=== PATIENT | male | born 1995 | race Hispanic/Latino ===

== ENCOUNTER 2021-05-23 14:39 | Emergency (ER) | payer OTHER ==
[~2021-05-23] VITALS: Ht 160 cm; Wt 70.0 kg
[2021-05-23] MEDS ORDERED: TORADOL PO (17:07)
[2021-05-23 17:20] VITALS: BP 118/78
== END 2021-05-23 17:20 | disposition home or self-care (01) | DRG 950 ==
LOC: ED 14:39
DX: S60.211D Contusion of right wrist, subsequent encounter (principal); W01.0XXD Fall on same level from slipping, tripping and stumbling without subsequent striking against object, subsequent encounter; Y92.89 Other specified places as the place of occurrence of the external cause; Y99.0 Civilian activity done for income or pay

== ENCOUNTER 2021-05-29 10:59 | Emergency (ER) | payer OTHER ==
[~2021-05-29] VITALS: Ht 167.6 cm; Wt 70.0 kg
[~2021-05-29 10:59] MED LIST: TORADOL PO
[2021-05-29 11:15] VITALS: BP 123/85
[2021-05-29] MEDS ORDERED: MOTRIN400 MG/TAB PO (13:16)
== END 2021-05-29 13:50 | disposition home or self-care (01) | DRG 556 ==
LOC: ED 10:59
DX: M79.641 Pain in right hand (principal); W19.XXXA Unspecified fall, initial encounter; Y92.89 Other specified places as the place of occurrence of the external cause; Y99.0 Civilian activity done for income or pay

== ENCOUNTER 2021-10-19 15:42 | Emergency (ER) | payer SELFPAY ==
[~2021-10-19] VITALS: Ht 167.6 cm; Wt 68.0 kg
[~2021-10-19 15:42] MED LIST changes: +MOTRIN400 MG/TAB PO
[2021-10-19 16:21] VITALS: BP 123/93
[2021-10-19 16:30] VITALS: BP 127/90
[2021-10-19 17:00] VITALS: BP 110/82
[2021-10-19 17:30] VITALS: BP 125/90
[2021-10-19 18:00] VITALS: BP 135/96
[2021-10-19] MEDS ORDERED: TAM75CAP PO (18:00)
== END 2021-10-19 18:20 | disposition home or self-care (01) | DRG 153 ==
LOC: ED 15:42
DX: J11.1 Influenza due to unidentified influenza virus with other respiratory manifestations (principal)

== ENCOUNTER 2022-10-15 10:14 | Emergency (ER) | payer OTHER ==
[~2022-10-15] VITALS: Ht 167.6 cm; Wt 80.0 kg
[~2022-10-15 10:14] MED LIST changes: +TAM75CAP PO
[2022-10-15] MEDS ORDERED: PREDNISONE10 MG PO (12:11)
[2022-10-15] MEDS ORDERED: NAPROXEN500 MG PO (12:11)
[2022-10-15] MEDS ORDERED: METHOCARBAMOL500 MG PO (12:11)
[2022-10-15 12:17] VITALS: BP 118/78
== END 2022-10-15 12:32 | disposition home or self-care (01) | DRG 552 ==
LOC: ED 10:14
DX: M54.16 Radiculopathy, lumbar region (principal)